=== PATIENT | male | born 1995 | race Caucasian/White ===

== ENCOUNTER 2020-09-01 19:33 | Emergency (ER) | payer BC, SELFPAY ==
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
[2020-09-01 19:39] VITALS: BP 106/65; PULSE 63; RESP 16; TEMP 36.4; O2SAT 100
== END 2020-09-01 19:59 | disposition home or self-care (01) ==
PROVIDERS: Emergency Provider Nurse Practitioner Family; PCP Physician Assistant
DX: S62.614A Displaced fracture of proximal phalanx of right ring finger, initial encounter for closed fracture (principal); V19.9XXA Pedal cyclist (driver) (passenger) injured in unspecified traffic accident, initial encounter
CPT/HCPCS: 29130; 73140; 99214; G0463

== ENCOUNTER 2022-07-23 08:18 | Outpatient (CLI) | payer BC, SELFPAY ==
--- NOTE | 2022-07-28 16:10 | WPDSLEEPSTUD ---
Sleep Study Date of Study: 07/23/22 Ordering Provider: Rory Galloway APRN Interpreting Physician: Araceli Calzada MD Sleep Study Type: Split Polysomnogram Height: 1.8 m Weight: 65.317 kg Body Mass Index: 20.0 Neck Circumference (inches): 14 [place]: 16 Reason for Sleep Study Hypersomnolence Sleep History Kevin Wells is a 26-year-old man with Hypersomnolence. He came for a split night study with possible MSLT. He reports that he 1st noticed sleeping problems when he was in middle school and high school and these persisted through college. He was prescribed Adderall last year for ADHD. It kept him awake but ruined his mental status. Within a few hours of waking he becomes extremely drowsy. This leads to falling asleep involuntarily during the day despite of any circumstance. He also has muscle weakness mostly in his back which results in bad posture. He says that Adderall helped him with this problem. The stimulant help during class and during work. There is a family history of sleep issues with his father having obstructive sleep apnea. He does not awaken from sleep feeling short of breath. He does not awaken at night with heartburn, belching or coughing. He does not snore. He does not wake up gasping for breath at night. He does not have breathing problems at night observed by others. He occasionally sweats excessively at night. Does not notice his heart pounding or beating irregularly at night. Always falls asleep during the day, frequently involuntarily and occasionally even while driving. He does not have loss of muscle tone with strong emotion. He always has daytime difficulties due to excessive sleepiness. On one occasion, he felt paralyzed on waking or falling asleep. he does not have dreamlike scenes on waking or falling asleep. He does not feel afraid to go to sleep. He does not have nightmares. He rarely remembers his dreams. He almost never remember any dreams until least all started Wellbutrin a year ago. He frequently has racing thoughts, feelings of sadness, depression and anxiety. He does not have muscular tension. He rarely notices parts of his body jerking. He does not kick at night. He does not have leg pain during the night. He rarely has morning jaw pain. He does not grind his teeth during sleep. He occasionally is bothered by pain during the day. He has never awakened by pain at night or wake and will feeling stiff in the morning with sore achy muscles. Repeat occasionally has pain in his neck on waking. He has sexual problems, fatigue, memory problems headaches, depression and concentration difficulties. Normal bedtime is between 4:00 a.m. and 5:00 a.m., falling asleep within 20 minutes waking between 1:00 p.m. and 2:00 p.m.. He does not wake during the night. He estimates getting between 8 hours 11 hours of sleep same schedule on the weekends. He takes naps involuntarily. A short nap may be refreshing. He is usually drowsy for 1-2 hours after waking. He feels better in the evening and the night prior to other times of day. Habits: Never smoked tobacco. Caffeine up to 2 sodas per day. No alcohol or recreational substances. [facility] Past Medical History Medical History Anxiety Chronic headaches Depression Fracture of proximal phalanx of digit of right hand Psychiatric care [facility] Surgical History Surgical History Appendicitis Family History Family History Sibling Non-Hodgkin lymphoma Other Asthma Social History Social History Smoking status: Never smoker Alcohol intake: never Substance use: never Medications Home Medications Medication Instructions Recorded Confirmed Type bupropion HCl 300 mg 24 hr tablet, 300 mg PO QAM 10/29
== END 2022-07-24 15:38 | disposition home or self-care (01) ==
LOC: ANHCSM 08:19
PROVIDERS: PCP Physician Assistant; Visit Provider Nurse Practitioner Family
DX: G47.33 Obstructive sleep apnea (adult) (pediatric) (principal)
CPT/HCPCS: 95811